=== PATIENT | male | born 1970 | race Caucasian/White ===

== ENCOUNTER 2024-02-08 19:16 | Emergency (ER) | payer OTHER, SELFPAY ==
[2024-02-08 19:23] VITALS: BP 160/111
[2024-02-08] MEDS: MAALOX 50 PO (19:32)
--- NOTE | 2024-02-08 21:18 | ED.GENMED ---
History of Present Illness
<Mary Ellington MD, Resident - Last Filed: 02/08/24 23:26>
General
Chief Complaint: Throat Problem
Time Seen by Provider: 02/08/24 21:16
History of Present Illness
History of Present Illness:
This is a 53-year-old male patient with PMH of atrial fibrillation on Xarelto and high blood pressure who presented to the ER with concerns of acid reflux. He states that today afternoon as he was watching TV and had some food he suddenly had a
very severe case of acid reflux. He states that his diet has been recently not beneficial for his GERD symptoms. He states that he took 1 dose of pantoprazole in the morning but had not taken his second dose. He denies any nausea, vomiting,
abdominal pain or fevers. He admits to having to chew his food thoroughly to avoid choking but he denies any current difficulty swallowing liquids/solids. He states that he had not seen a GI doctor in a while and has not had an endoscopy recently.
Past History
<Mary Ellington MD, Resident - Last Filed: 02/08/24 23:26>
Past History
ED Past Medical History: Arrthythmia (Atrial fib) and HTN
ED Past Surgical History: None
Social History
Tobacco: Former smoker
Alcohol: Occasional
Personal:
Living: with family
Employment: Employed
Review of Systems
<Mary Ellington MD, Resident - Last Filed: 02/08/24 23:26>
Review of Systems
All Other Systems: ROS reviewed and negative except as documented in HPI and ROS
EENT: Reports other (Burning sensation in throat)
Cardiac: Denies chest pain or palpitations
ABD/GI: Denies abdominal pain, nausea or vomiting
Phy Exam
<Mary Ellington MD, Resident - Last Filed: 02/08/24 23:26>
General Physical Exam
General Presentation: well appearing and no apparent distress
ENT Exam
ENT Exam: pharyngeal erythema
Cardiovascular Exam
Cardiovascular Exam: regular rate/rhythm and no murmur
Heart Sounds: normal
Pulmonary Exam
Pulmonary Exam: lungs clear, no respiratory distress and no crackles
Gastrointestinal Exam
Gastrointestinal Exam: non tender, soft and non distended
Neurological Exam
Neurological Exam: oriented x3
Musculoskeletal Exam
Musculoskeletal Exam: no edema
Skin Exam
Skin Exam: warm/dry
Psychiatric Exam
Psychiatric Exam: normal mood/affect
Course
<Mary Geovanna Ellington MD, Resident - Last Filed: 02/08/24 23:26>
Orders/Labs/Results
Orders:
Orders
02/08/24 19:18
Electrocardiogram (*1) Urgent
Reason for Study: Other
Other Reason for Exam: throat pain
02/08/24 19:19
EKG- Treatment ONCE
02/08/24 19:28
Mag Hydrox/Al Hydrox/Simeth [Maalox] 30 ml Phenobarb/Hyoscy/Atropine/Scop [] 10 ml Viscous Lidocaine 2% [Xylocaine Viscous Cup] 10 ml PO NOW
02/08/24 19:30
Mag Hydrox/Al Hydrox/Simeth [Maalox] 30 ml .ROUTE .STK-MED ONE
Phenobarb/Hyoscy/Atropine/Scop [] 10 ml .ROUTE .STK-MED ONE
02/08/24 19:31
Viscous Lidocaine 2% [Xylocaine Viscous Cup] 15 ml .ROUTE .STK-MED ONE
02/08/24 22:07
Sucralfate [Carafate] 1 gram PO NOW STA
02/08/24 22:14
Sucralfate Suspension [Carafate Suspension] 1 gm .ROUTE .STK-MED ONE
Sucralfate Suspension [Carafate Suspension] 1 gm PO NOW STA
02/08/24 23:05
Pantoprazole [Protonix] 40 mg PO NOW STA
Vital Signs
Initial and Last Documented VS:
Initial Vital Signs
Temp Pulse Resp BP Pulse Ox
98.8 F 76 20 160/111 96
02/08/24 19:23 02/08/24 19:23 02/08/24 19:23 02/08/24 19:23 02/08/24 19:23
Last Documented Vital Signs
Temp Pulse Resp BP Pulse Ox
98.8 F 61 20 150/100 97
02/08/24 19:23 02/08/24 22:17 02/08/24 22:17 02/08/24 22:17 02/08/24 22:17
<Abhilash Zhong, DO - Last Filed: 02/08/24 22:09>
Orders/Labs/Results
Orders:
Orders
02/08/24 19:18
Electrocardiogram (*1) Urgent
Reason for Study: Other
Other Reason for Exam: throat pain
02/08/24 19:19
EKG- Treatment ONCE
02/08/24 19:28
Mag Hydrox/Al Hydrox/Simeth [Maalox] 30 ml Phenobarb/Hyoscy/Atropine/Scop [] 10 ml Viscous Lidocaine 2% [Xylocaine Viscous Cup] 10 ml PO NOW
02/08/24 19:30
Mag Hydrox/Al Hydrox/Simeth [Maalox] 30 ml .ROUTE .STK-MED ONE
Phenobarb/Hyoscy/Atropine/Scop [] 10 ml .ROUTE .STK-MED ONE
02/08/24 19:31
Viscous Lidocaine 2% [Xylocaine Viscous Cup] 15 ml .ROUTE .STK-MED ONE
02/08/24 22:07
Sucralfate [Carafate] 1 gram PO NOW STA
02/08/24 22:14
Sucralfate Suspension [Carafate Suspension] 1 gm .ROUTE .STK-MED ONE
Sucralfate Suspension [Carafate Suspension] 1 gm PO NOW STA
02/08/24 23:05
Pantoprazole [Protonix] 40 mg PO NOW STA
Vital Signs
Initial and Last Documented VS:
Initial Vital Signs
Temp Pulse Resp BP Pulse Ox
98.8 F 76 20 160/111 96
02/08/24 19:23 02/08/24 19:23 02/08/24 19:23 02/08/24 19:23 02/08/24 19:23
Last Documented Vital Signs
Temp Pulse Resp BP Pulse Ox
98.8 F 61 20 150/100 97
02/08/24 19:23 02/08/24 22:17 02/08/24 22:17 02/08/24 22:17 02/08/24 22:17
<Mary Ellington MD, Resident - Last Filed: 02/08/24 23:26>
MDM/Problems Addressed
Differential Diagnosis Includes:
GERD, esophageal stricture,
MDM/Problems Addressed:
Patient was given HurriCaine spray along with GI cocktail And Carafate. He states that he felt a little better but continued to have a burning sensation in the throat. Since patient had not taken his second dose of PPI, another dose was given.
Discussed with patient that further management with GI outpatient with a possible endoscopy could benefit him. Patient is hemodynamically stable and will be discharged with Carafate for 7 days and GI provider information given in discharge papers.
<Mary Ellington MD, Resident - Last Filed: 02/08/24 23:26>
*Critical Care Note
Total Time (30-74mins, 75-104mins- exclusive of procedures): Not Applicable
ED Attending Note
<Mary Ellington MD, Resident - Last Filed: 02/08/24 23:26>
-
Portions of this chart may have been created with voice recognition software.� Occasional wrong word or��sound alike� substitutions may have occurred due to the inherent limitations of voice recognition software.
<Abhilash Zhong, DO - Last Filed: 02/08/24 22:09>
ED Attending Note
Patient seen and examined by attending physician: Yes
I performed a history and physical exam of patient and discussed management with resident, I reviewed resident's note and agree with documented findings and plan of care.: Yes
ED Attending Note:
I have seen and evaluated the patient with a [id number] encounter. I have spoken to the resident and involved in the medical history, the physical exam, medical decision making.
Evaluation and management service: agree unless noted differently below.
Results interpretation: agree unless noted differently below.
Focused HPI: 53-year-old male presenting with a burning sensation in his throat. He does have a history of reflux. He states it was relatively sudden. He denies chest pain
Physical exam: Well-appearing nontoxic. Posterior pharynx erythematous without edema. Uvula midline. No exudate.
Medical Decision Making: Screening EKG without ischemic changes. Patient given GI cocktail with minimal relief, per patient. HurriCaine spray used which did help somewhat. Will start Carafate and potentially increase PPI
Discharge Plan
Departure
Patient Disposition: Home (Routine Discharge)
Date of Disposition: 02/08/24
Time of Disposition: 23:16
Patient with high blood pressure during this ER visit?: Yes
Discharge Problem:
GERD (gastroesophageal reflux disease)
Prescriptions:
New
sucralfate [Carafate] 1 gram tablet
1 g PO AC 7 Days Qty: 21 0RF
No Action
ibuprofen 600 MG tablet
600 mg PO TIDPRN PRN (Reason: pain) Qty: 30 0RF
metoprolol succinate 50 MG tablet extended release 24 hr
50 mg PO DAILY
pantoprazole 40 MG tablet,delayed release (DR/EC)
40 mg PO DAILY
rivaroxaban [Xarelto] 20 MG tablet
20 mg PO DAILY
Wellbutrin Regular Release:
300 mg PO DAILY
cyclobenzaprine 10 MG tablet
10 mg PO TID PRN (Reason: spasm) Qty: 12 0RF
prednisone 10 MG tablet
10 mg PO .TAPER Qty: 30 0RF
Rx Instructions:
Take 40mg daily x3days, 30mg daily x3days,
20mg daily x3days, 10mg daily x3days.
Referrals:
Samuel Tate MD [Family Provider] -
Yue Lacy DO [Active] -
Activity Restrictions/Additional Instructions:
Experiencing symptoms such as worsening retrosternal heartburn, vomiting, or high-grade fevers please return to the ER. Follow-up with primary care physician and GI doctor for further management of GERD, would possibly benefit from endoscopy for
further treatment.
Interventions
Interventions:
*Neglect/Abuse Screening Last Done: 02/08/24 19:23
*ED COVID-19 Vaccine History Last Done: 02/08/24 19:23
ED-EENT Assessment Last Done: 02/08/24 22:17
ED- Pulmonary Assessment Last Done: 02/08/24 22:17
Discharge Date and Time
Print Language: IRISH
[2024-02-08] MEDS: CARAFATE SUSPENSION 1 GM PO (22:15)
[2024-02-08 22:17] VITALS: BP 150/100
[2024-02-08] MEDS: PROTONIX 40 MG PO (23:21)
== END 2024-02-08 23:27 | disposition home or self-care (01) ==
LOC: EMR 19:16
PROVIDERS: EMERGENCY PHYSICIAN Student in an Organized Health Care Education/Training Program; FAMILY PHYSICIAN Family Medicine
DX: K21.9 Gastro-esophageal reflux disease without esophagitis (principal); I10 Essential (primary) hypertension; Z87.891 Personal history of nicotine dependence
CPT/HCPCS: 99283; 93005